=== PATIENT | male | born 1950 ===

== ENCOUNTER → 2017-12-27 | Outpatient (REF) ==
[2017-12-27 17:48] LABS: COLLECTION METHOD CLEAN CATCH
[2017-12-27 18:04] LABS: PH 7 (5-8); SQUAMOUS EPITHELIAL None Seen /hpf; URINE APPEARANCE Clear; URINE BACTERIA None Seen /hpf; URINE BILIRUBIN Negative (NEGATIVE); URINE BLOOD Negative (NEGATIVE); URINE COLOR Yellow; URINE GLUCOSE Negative (NEGATIVE); URINE KETONE Negative (NEGATIVE); URINE LEUKOCYTE ESTERASE Negative (NEGATIVE); URINE NITRATE Negative (NEGATIVE); URINE PROTEIN(semi-quant) Negative (NEGATIVE); URINE RBC 0-2 /hpf; URINE UROBILINOGEN Negative (NEGATIVE)
== END ==
LOC: ZLAB.STJ 17:46
PROVIDERS: Nurse Practitioner
DX: N39.0 Urinary tract infection, site not specified (principal)

== ENCOUNTER → 2017-12-31 | Outpatient (REF) | LOC: ZLAB.STJ 10:55 | DX: R78.81 Bacteremia (principal) ==

== ENCOUNTER → 2021-06-06 | Outpatient (CLI) | payer OTHER ==
[2021-06-07 00:32] LABS: CLOSTRIDIUM DIFF A/B NEG; CLOSTRIDIUM DIFF A/B INTERP No C.diff present
== END ==
LOC: ZCOL.LAB 22:46
PROVIDERS: Internal Medicine
DX: A04.9 Bacterial intestinal infection, unspecified (principal)